=== PATIENT | male | born 1990 | race Caucasian/White ===

== ENCOUNTER 2016-03-17 22:29 | Emergency (ER) | payer SELFPAY ==
[2016-03-17 22:30] VITALS: BMI 27.9
[2016-03-17 23:01] VITALS: TEMP 98.3
[2016-03-17] MEDS ORDERED: DIAZEPAM 5 MG TAB PO ONE (23:20)
[2016-03-17] MEDS ORDERED: OXYCODONE HCL 5 MG TABLET PO ONE (23:20)
--- NOTE | 2016-03-17 23:24 | EDPRACDOC ---
- General Information Chief Complaint: Back Pain Stated Complaint: BACK PAIN Time Seen by Provider: 03/17/16 23:15 Information Source: Patient Mode Of Arrival: Car Home Medications: Home Medications Cyclobenzaprine HCl [Flexeril] 10 mg PO TID PRN #20 tablet 06/21/15 Ketorolac Tromethamine [Toradol] 10 mg PO Q6H PRN #20 tab 06/21/15 Diazepam [Valium] 5 mg PO TID #15 tablet 03/18/16 Ketorolac Tromethamine [Toradol] 10 mg PO Q6H PRN #20 tab 03/18/16 Oxycodone Immediate Release [Oxycodone Immediate Release (OxyIR)] 5 mg PO Q6H PRN #20 tab 03/18/16 Allergies/Adverse Reactions: Allergies Allergy/AdvReac Type Severity Reaction Status Date / Time divalproex sodium Allergy Severe Anaphylaxis Verified 03/17/16 23:00 [From Depakote] * lithium [[place]] Allergy Severe Confusion Verified 03/17/16 23:00 methylphenidate HCl Allergy Severe Hypertensio Verified 03/17/16 23:00 [From Ritalin] n Penicillins Allergy Severe Hives* Verified 03/17/16 23:00 prednisone Allergy Severe PSYCHOSIS Verified 03/17/16 23:00 quetiapine fumarate Allergy See Verified 03/17/16 23:00 [From Seroquel] Comments RISPERIDOL Allergy Severe PSYCHOSIS Uncoded 03/17/16 23:00 - History of Present Illness Onset: 1 day HPI: PT PRESENTS WITH LOWER LUMBAR PAIN THAT STATES BEGAN PRIOR TO JEREMY, STATES HE WAS DEALING WITH IT UNTIL TONIGHT WHEN HIS 10 YEAR OLD SON JUMPED ON HIS BACK. PT DENIES RADIATION OF THE PAIN OR ANY LOSS OF BOWEL AND BLADDER. Pain Location: Reports: Lumbar Pain Radiates To: Reports: None Pain Caused By: Reports: Spontaneous Circumstances: Reports: Unknown Pain Severity: Reports: Moderate Pain Quality: Reports: Sharp, Stabbing Worsened By: Reports: Breathing, Movement, Twisting, Walking Associated Signs and Symptoms: Reports: None ED Past Medical History - History Reviewed Yes Nurses notes reviewed and agree except as marked - Patient Medical History Cardiac History: Reports: Hypertension, Hypercholesterolemia Respiratory History: Reports: Asthma Psychological History: Reports: Bipolar Disorder. Denies: Depression Additional Past Medical History: CHRONIC PAIN SYNDROMES - Social Medical History Smoking Status: Heavy tobacco smoker (5 or more cigarettes/day or daily pipe/ cigar) Social History: Reports: Marijuana Use EDM Review of Systems - Review of Systems ROS Negative Except as Marked: Yes All systems reviewed and were negative except as marked - Physical Exam Constitutional: Alert Oriented to: Time, Person, Place Last recorded Vital Signs: Last Vital Signs Temp 98.3 F 03/17/16 22:55 Pulse 76 03/17/16 22:55 Resp 20 03/17/16 22:55 BP 135/90 03/17/16 22:55 Pulse Ox 96 03/17/16 22:55 Oxygen Pulse Oxygen Saturation 96 O2 Device Room Air Oxygen Flow Rate Fraction of Inspired Oxygen ( FIO2) - HEENT Head: Normal ( normocephalic) Eye Exam: Normal (PERRL, EOMI, Sclera white) Oropharynx: Normal (Pharynx:Moist without exudate,Gums-no swelling) Tympanic Membrane: Normal Nose: No Symptoms Reported (septum midline) Neck: Normal (FROM, trachea at midline) - Respiratory/Cardiovascular Respiratory: Normal - CTA (BBS clear to auscultation without adventitious sounds ) Cardiovascular: Normal (RRR without murmur, gallop or rub) - GI Auscultation: Normal (NABS) Palpation: Normal (Soft,No rebound or guarding, non distended) Tenderness: Non tender Douglass's Sign: Negative Rectal Exam: Deferred - Musculoskeletal Back: Normal (Non-Tender) Extremities: Normal (Normal tone, Pulses 2+ No cyanosis or edema, FROM) - Integumentary Skin: Normal, Warm, Dry Lymphatics: Normal (no adenopathy) - Neurologic Memory Impaired: Normal Motor Function: Normal (Normal tone, Pulses 2+ No cyanosis or edema, FROM) Cranial Nerve: Normal (CN II-X11 intact sensation, strength 5/5) Cerebellar: Normal Mood Description: Normal Perception: Normal ED Back Exam - Neurologic Motor Deficit: None Reflexes: Normal - Musculoskeletal Cervical: Normal Thoracic: Normal Lumbar: Tender, CVA Tenderness Midline: Normal Paraspinous: Tender Straight Leg Raise: Negative Pelvis: Normal - Differential Diagnosis Musculoskeletal pain Decision Time to Discharge: 00:12 - Departure Disposition: Home Condition: Stable Final Diagnosis: Lumbar radiculopathy Instructions: Acute Low Back Pain (ED) Education/Counseling Given To: Patient Education/Counseling Given Regarding: Diagnosis, Treatment, Prognosis, Follow Up Referrals: Cameron Sifuentes II, MD [Staff Physician] - One Week Prescriptions: Diazepam [Valium] 5 mg PO TID #15 tablet Ketorolac Tromethamine [Toradol] 10 mg PO Q6H PRN #20 tab PRN Reason: Pain Oxycodone Immediate Release [Oxycodone Immediate Release (OxyIR)] 5 mg PO Q6H PRN #20 tab PRN Reason: Pain Additional Instructions: ICE OR HEAT TO THE AFFECTED AREA. FOLLOW UP WITH PCP NEXT WEEK.
--- NOTE | 2016-03-18 00:08 | DIRPT ---
CLINICAL DATA: Acute stiffness at the lower back after roughhousing; underlying chronic lower back pain. Initial encounter. EXAM: LUMBAR SPINE - COMPLETE 4+ VIEW COMPARISON: Lumbar spine radiographs performed 04/11/2015 FINDINGS: There is no evidence of fracture or subluxation. Vertebral bodies demonstrate normal height and alignment. Intervertebral disc spaces are preserved. The visualized neural foramina are grossly unremarkable in appearance. The visualized bowel gas pattern is unremarkable in appearance; air and stool are noted within the colon. The sacroiliac joints are within normal limits. IMPRESSION: No evidence of fracture or subluxation along the lumbar spine. Electronically Signed By: Anmol Patel M.D. On: 03/18/2016 00:05
[2016-03-18 00:36] VITALS: BP 135/68; PULSE 75
== END 2016-03-18 00:35 | disposition home or self-care (01) ==
LOC: ED 22:29
DX: M54.16 Radiculopathy, lumbar region (principal)
CPT/HCPCS: 72110; 99283; J3490

== ENCOUNTER 2016-04-16 10:11 | Emergency (ER) | payer SELFPAY ==
[2016-04-16 10:23] VITALS: TEMP 98.5; BMI 27.1
[2016-04-16] MEDS ORDERED: OXYCODONE HCL 5 MG TABLET PO ONE (10:46)
--- NOTE | 2016-04-16 10:56 | EDPRACDOC ---
- General Information Chief Complaint: Shoulder Pain Stated Complaint: SHOULDER PAIN Time Seen by Provider: 04/16/16 10:41 Information Source: Patient Home Medications: Home Medications Hydrocodone Bit/Acetaminophen [Hydrocodon-Acetaminophen 5-325] 1 tab PO Q4H PRN #7 tab 04/16/16 Ketoprofen 75 mg PO TID #20 capsule 04/16/16 Allergies/Adverse Reactions: Allergies Allergy/AdvReac Type Severity Reaction Status Date / Time divalproex sodium Allergy Severe Anaphylaxis Verified 04/16/16 10:20 [From Depakote] * lithium [[place]] Allergy Severe Confusion Verified 04/16/16 10:20 methylphenidate HCl Allergy Severe Hypertensio Verified 04/16/16 10:20 [From Ritalin] n Penicillins Allergy Severe Hives* Verified 04/16/16 10:20 prednisone Allergy Severe PSYCHOSIS Verified 04/16/16 10:20 quetiapine fumarate Allergy See Verified 04/16/16 10:20 [From Seroquel] Comments RISPERIDOL Allergy Severe PSYCHOSIS Uncoded 04/16/16 10:20 - History of Present Illness Onset: one month HPI: PT STATES FELL 1 MONTH AGO HAD HAIRLINE FRACTURE OF RIGHT AC JOINT, WAS REFERRED TO [facility] BUT HAS NOT FOLLOWED DUE TO FINANCIAL REASONS. PT STATES IS HAVING INCREASED PAIN, NO NEW INJURY NOTED AT THIS TIME. Description: Reports: With Use, At Rest Location: Reports: Right, Lateral, Superior Circumstances: Reports: Other (FALL 1 MONTH AGO) Relevant History: Reports: Shoulder Fracture (PER PT) Dominant Hand: Right Pain Severity: Moderate Able to Move Shoulder?: Yes (PAINFUL) Associated Signs & Symptoms: Reports: None ED Past Medical History - History Reviewed Yes Nurses notes reviewed and agree except as marked Travel Outside of [place] in the Last 3 Months?: No - Patient Medical History Cardiac History: Reports: Hypertension, Hypercholesterolemia Respiratory History: Reports: Asthma Psychological History: Reports: Bipolar Disorder. Denies: Depression Additional Past Medical History: CHRONIC PAIN SYNDROMES - Social Medical History Smoking Status: Heavy tobacco smoker (5 or more cigarettes/day or daily pipe/ cigar) Social History: Reports: Marijuana Use ETOH: None Substance Abuse: Illicit Drugs Lives With: Other Lives In: Home EDM Review of Systems - Review of Systems ROS Negative Except as Marked: Yes All systems reviewed and were negative except as marked Constitutional: No Symptoms Reported. negative: Fever, Chills, Weakness, Fatigue, Loss of Appetite Eyes: No Symptoms Reported. negative: Redness, Blurred Vision, Double Vision, Discharge, Pain, Light Sensitive, Photophobia Ears: No Symptoms Reported. negative: Pain, Hearing Loss, Drainage, Ear Pulling Throat: No Symptoms Reported. negative: Pain, Swelling Nose: No Symptoms Reported. negative: Congestion, Bleeding, Discharge, Injection, Swelling, Deformity, Ecchymosis, Tender, Abrasion, Laceration Mouth: No Symptoms Reported. negative: Pain, Drooling Respiratory: No Symptoms Reported. negative: Cough, Brassy Cough, Barky Cough, Shortness of Breath, Wheezing, Hemoptysis Cardiovascular: No Symptoms Reported. negative: Chest Pain, Palpitations, Syncope, Edema, Orthopnea, PND, Skin Mottling, Cyanosis Gastrointestinal: No Symptoms Reported. negative: Pain, Constipation, Nausea, Vomiting, Diarrhea, Melena, Formula Intolerance Genitourinary: No Symptoms Reported. negative: Dysuria, Hematuria, Frequency, Discharge, Bleeding, Testicular Pain, Neurological: No Symptoms Reported. negative: Headache, Dizziness, Seizure, Numbness, Weakness, Speech Difficulty, Gait Difficulty Musculoskeletal: Shoulder (RT). negative: Arm, Ankle, Back, Chestwall, Elbow, Forearm, Femur, Foot, Hand, Hip, Knee, Leg, Neck, Pelvis, Ribs, Wrist Integumentary: No Symptoms Reported. negative: Itching, Rash, Bruising, Wound Allergic/Immunologic: No Symptoms Reported. negative: Hives, Itching Hematologic: No Symptoms Reported. negative: Lymphadenopathy, Easy Bruising, Easy Bleeding Endocrine: No Symptoms Reported. negative: Weight Gain, Weight Loss Psychiatric: No Symptoms Reported. negative: Anxiety, Depression, Hallucinations, Insomnia, Suicidal - Physical Exam Constitutional: No apparent distress, Alert (Awake) Oriented to: Time, Person, Place Last recorded Vital Signs: Last Vital Signs Temp 98.5 F 04/16/16 10:20 Pulse 96 04/16/16 10:20 Resp 18 04/16/16 10:20 BP 162/101 H 04/16/16 10:20 Pulse Ox 96 04/16/16 10:20 Oxygen Pulse Oxygen Saturation 96 O2 Device Room Air Oxygen Flow Rate Fraction of Inspired Oxygen ( FIO2) - HEENT Head: Normal ( normocephalic) Eye Exam: Normal (PERRL, EOMI, Sclera white) Oropharynx: Normal (Pharynx:Moist without exudate,Gums-no swelling) Tympanic Membrane: Normal ENT EAC: Normal TMJ: Normal Nose: No Symptoms Reported (septum midline) Neck: Normal (FROM, trachea at midline) - Respiratory/Cardiovascular Respiratory: Normal - CTA (BBS clear to auscultation without adventitious sounds ) Cardiovascular: Normal (RRR without murmur, gallop or rub) - GI Auscultation: Normal (NABS) Palpation: Normal (Soft,No rebound or guarding, non distended) Tenderness: Non tender Douglass's Sign: Negative - Musculoskeletal Back: Normal (Non-Tender) Extremities: Normal (Normal tone, Pulses 2+ No cyanosis or edema, FROM) - Integumentary Skin: Normal, Warm, Dry Lymphatics: Normal (no adenopathy) - Neurologic Memory Impaired: Normal Motor Function: Normal (Normal tone, Pulses 2+ No cyanosis or edema, FROM) Cranial Nerve: Normal (CN II-X11 intact sensation, strength 5/5) Cerebellar: Normal Mood Description: Normal Perception: Normal ED Shoulder Problem Exam - Musculoskeletal Clavicle: Normal Shoulder: Limited ROM (DUE TO PAIN), Tender (OVER AC JOINT REGION) Arm: Normal Distal Function/Circulation: Normal - Differential Diagnosis AC separation, Bicipital tendonitis, Calcific tendonitis, Contusion, Humerus fracture/open, Impingement syndrome, Rotator cuff injury, Sprain, Other ( ACROMIUM FRACTURE) - Diagnostic Imaging RT HSOULDER Image interpreted by: Radiologist IMPRESSION: No acute osseous injury of the right shoulder. Decision Time to Discharge: 11:34 - Departure Disposition: Home Condition: Stable Final Diagnosis: Right shoulder strain Qualifiers: Encounter type: subsequent encounter Qualified Code(s): S46.911D - Strain of unspecified muscle, fascia and tendon at shoulder and upper arm level, right arm , subsequent encounter Instructions: RICE Therapy (ED), Rotator Cuff Injury (ED) Education/Counseling Given To: Patient Education/Counseling Given Regarding: Diagnosis, Treatment, Prognosis, Follow Up Referrals: None,No Provider [Primary Care Provider] - One Week Luke Flores MD [Staff Physician] - One Week Prescriptions: New Hydrocodone Bit/Acetaminophen [Hydrocodon-Acetaminophen 5-325] 1 tab PO Q4H PRN #7 tab PRN Reason: Pain Ketoprofen 75 mg PO TID #20 capsule
--- NOTE | 2016-04-16 11:24 | DIRPT ---
CLINICAL DATA: Status post fall 1 month ago. Shoulder pain. EXAM: RIGHT SHOULDER - 2+ VIEW COMPARISON: None. FINDINGS: There is no evidence of fracture or dislocation. There is no evidence of arthropathy or other focal bone abnormality. Soft tissues are unremarkable. IMPRESSION: No acute osseous injury of the right shoulder. Electronically Signed By: Miroslava Mendieta On: 04/16/2016 11:21
[2016-04-16 11:55] VITALS: BP 154/108; PULSE 84
== END 2016-04-16 11:55 | disposition home or self-care (01) ==
LOC: ED 10:11
DX: S46.911D Strain of unspecified muscle, fascia and tendon at shoulder and upper arm level, right arm, subsequent encounter (principal); X58.XXXD Exposure to other specified factors, subsequent encounter
CPT/HCPCS: 73030; 99283; J3490